=== PATIENT | male | born 1970 | race Hispanic/Latino ===

== ENCOUNTER 2019-05-01 03:15 | Inpatient (IN) ==
[2019-04-25 11:53] LABS: HEMATOCRIT 46.5 % (42.0-52.0); HEMOGLOBIN 15.1 g/dL (14.0-18.0); MCH 27.1 PG (27-31); MCHC 32.5 g/dL (33-37); MCV 83.3 FL (81-99); MPV 9.4 FL (7.4-10.4); RBC 5.58 XMIL (4.7-6.1); RDW 12.9 % (11.5-14.5); WBC 7.14 X1000 (4.8-10.8)
[2019-04-25 12:22] LABS: AGAP 11; BUN 15 mg/dL (8-22); CALCIUM 9.1 mg/dL (8.8-10.2); CHLORIDE 100 mmol/L (98-107); COSMO 276; CREATININE 0.7 mg/dL (0.7-1.2); ESTIMATED GFR > 60; GLUCOSE 98 mg/dL (70-104); POTASSIUM 4.2 mmol/L (3.5-5.1); SODIUM 138 mmol/L (136-145); TCO2 27 mmol/L (25-35)
--- NOTE | 2019-04-25 12:24 | EKG Report ---
Test Performed on : 04/25/2019 11:31:26 AM Test Reason : pat Blood Pressure : / mmHG Vent. Rate : 063 BPM Atrial Rate : 063 BPM P-R Int : 154 ms QRS Dur : 082 ms QT Int : 422 ms P-R-T Axes : 032 -02 015 degrees QTc Int : 431 ms Normal sinus rhythm. Normal ECG No previous ECGs available Confirmed by Geo Frias MD ([id number]) on 04/25/2019 11:09:20 PM
[2019-05-01] MEDS ORDERED: ENTEREG ONE (05:38)
[2019-05-01] MEDS ORDERED: PEPCID ONE (05:38)
[2019-05-01] MEDS ORDERED: LR 1,000 ML ONE (05:38)
[2019-05-01] MEDS ORDERED: REGLAN ONE (05:38)
[2019-05-01] MEDS ORDERED: MEFOXIN 2 GM/NS 2 GM/50 ML IVPB ONE (05:39)
[2019-05-01] MEDS ORDERED: DIPRIVAN 1% ONE (06:33)
[2019-05-01] MEDS ORDERED: ZOFRAN ONE (07:41)
[2019-05-01] MEDS ORDERED: ZEMURON ONE ×3 (07:41→08:27)
[2019-05-01] MEDS ORDERED: DECADRON ONE (07:41)
[2019-05-01] MEDS ORDERED: OFIRMEV 1000 MG/ISOTONIC SOLN 1,000 MG/100 ML BOTTLE ONE (07:41)
[2019-05-01] MEDS ORDERED: XYLOCAINE-MPF 2% ONE (07:41)
[2019-05-01] MEDS ORDERED: TORADOL ONE (07:41)
[2019-05-01 07:46] LABS: URINE SOURCE CATH
[2019-05-01 07:49] LABS: BILIRUBIN URINE NEGATIVE (NEGATIVE); BLOOD URINE NEGATIVE (NEGATIVE); COLOR STRAW; GLUCOSE URINE NEGATIVE (NEGATIVE); KETONE URINE NEGATIVE (NEGATIVE); LEUKOCYTES URINE NEGATIVE (NEGATIVE); NITRITE URINE NEGATIVE (NEGATIVE); PROTEIN URINE NEGATIVE (NEGATIVE); SP GRAVITY URINE 1.003; TURBIDITY URINE CLEAR (CLEAR); UROBILINOGEN URINE NORMAL (NORMAL)
[2019-05-01 07:50] LABS: UR EPITHELIAL CELLS <10 /HPF (<10); URINE BACTERIA NEGATIVE /HPF; URINE RBC <10 /HPF (<10); URINE WBC <10 /HPF (<10)
[2019-05-01] MEDS ORDERED: EPINEPHRINE ONE (08:27)
[2019-05-01] MEDS ORDERED: ROBINUL ONE (08:51)
[2019-05-01] MEDS ORDERED: NEOSTIGMINE ONE (08:52)
[2019-05-01] MEDS ORDERED: DILAUDID ONE (09:03)
[2019-05-01] MEDS ORDERED: D5 1/2 NS + KCL 20 MEQ 1,000 ML ONE (09:24)
--- NOTE | 2019-05-01 09:33 | OPERATIVE NOTE ---
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 PROCEDURES PERFORMED: 1. Open low anterior resection with stapled end-to-end anastomosis with a 31 mm anastomosis. 2. Takedown and repair of colovesicular fistula. SURGEON: Vega Melgoza M.D. [employer] WORKER: Dr. French. Dr. French assisted with the entirety of the case. His presence was crucial to completion of the case. He helped with retraction, identification of structures, completion of the anastomosis. ANESTHESIA: General endotracheal. INTRAOPERATIVE FINDINGS: Small area of inflammation that was stuck to the anterior wall near the bladder. COMPLICATIONS: None at the time of this dictation. ESTIMATED BLOOD LOSS: 100 mL. SPECIMENS REMOVED: Sigmoid colon. BRIEF HISTORY: A 48-year-old male presenting with classic symptoms of a colovesicular fistula. He wanted this repaired. The risks, benefits, and alternatives were discussed. All questions were answered. DESCRIPTION OF PROCEDURE: After informed consent was obtained, the patient was brought to the operative theater, transferred to the operative table, placed in the supine position. General endotracheal anesthesia was then performed without complication. A formal time-out was then performed, confirming the patient and procedure. All were in agreement. At that time, attention was given to the abdomen. It should be noted that Anesthesia did perform a transabdominal plain block prior to starting the procedure. We prepped and draped the abdomen in sterile fashion. After the time-out, we made a standard midline incision around the umbilicus, carried all way down to the fascia, entered into the abdomen. Upon entering the abdomen, we found the area that was intimately attached to the anterior wall, the abdominal wall, and the bladder. We started by mobilizing the white line of Toldt to mobilize the sigmoid colon. Once we mobilized it down, we took down the colovesicular fistula. It was very intimately attached. It seemed to be in the superior side of the bladder, but it was taken down to free up the colon. We then elected to find an area in the sigmoid colon proximally that was good for coming across with the stapler. We mobilized this, made a window in the mesentery, fired our stapler across it. We then used the LigaSure to come down on the mesentery all the way down to the rectum. We went past the peritoneal reflection, into the pelvis, down to the rectum, used a TA stapler to come across the rectum. We then fashioned our anastomosis using an EEA stapler. We elected to use a 31 stapler given the size. We used a pursestring device. There was good perfusion noted to both ends. We were able to bring the EEA stapler in from a transrectal approach, fired the stapler, tested it under water, it was air tight under water, two intact donuts. We irrigated out the abdomen until the suctioned fluid was clear. We then closed the fascia with a running loop PDS started at either end, and then stapled the skin. The patient tolerated the procedure well, was transferred back to the recovery room. We will keep his Robles catheter in place given the fact that he had a bladder repair. cc: Vega Melgoza MD
[2019-05-01] MEDS ORDERED: ZOFRAN IV PRN (10:35)
[2019-05-01] MEDS: MEFOXIN 2 GM/D5W 2 GM/50 ML IVPB IV SCH ×2 (14:30→21:00)
[2019-05-01] MEDS: OFIRMEV 1000 MG/ISOTONIC SOLN 1,000 MG/100 ML BOTTLE IV SCH ×2 (14:56→20:34)
[2019-05-01] MEDS: D5 1/2 NS + KCL 20 MEQ 1,000 ML IV SCH (14:57)
[2019-05-01] MEDS: HEPARIN SUBQ SCH (20:39)
[2019-05-01] MEDS ORDERED: PERIDEX MT ONE (21:07)
[2019-05-02] MEDS: OFIRMEV 1000 MG/ISOTONIC SOLN 1,000 MG/100 ML BOTTLE IV SCH (02:52)
[2019-05-02] MEDS: PERIDEX MT SCH ×3 (02:52→21:18)
[2019-05-02] MEDS: ULTRAM PO PRN ×4 (03:02→23:58)
[2019-05-02] MEDS: HEPARIN SUBQ SCH ×3 (05:36→21:18)
--- NOTE | 2019-05-02 07:34 | GENERAL SURGERY PROGRESS NOTE ---
DATE: 05/02/2019 SUBJECTIVE: Patient seems to be doing well. He has got a little bit of nausea but otherwise is doing okay. His pain seems to be adequately controlled. OBJECTIVE: Vital Signs: Patient is currently afebrile. His vital signs stable. General: No acute distress. Cardiovascular: Regular rate and rhythm. Lungs: Grossly clear. Abdomen: Soft, appropriately tender. No peritoneal signs. ASSESSMENT AND PLAN: A 48-year-old gentleman postoperative day #1 from open is low anterior resection with takedown of colovesicular fistula: 1. Colon resection. At this time continue routine postoperative care. He is on Entereg. We have got him on a clear liquid diet. We will await return of bowel function. 2. Colovesicular fistula. At this time, he keeps his Robles catheter for at least a week if not longer given the repair to the bladder. We will not remove the Robles catheter and normal timing. cc: Vega Melgoza MD
[2019-05-02] MEDS: D5 1/2 NS + KCL 20 MEQ 1,000 ML IV SCH (10:27)
[2019-05-02] MEDS: ENTEREG PO SCH ×2 (10:28→21:18)
--- NOTE | 2019-05-03 05:42 | GENERAL SURGERY PROGRESS NOTE ---
DATE: 05/03/2019 SUBJECTIVE: Patient seems to be doing okay. He says he has passed a little bit of gas. He tolerated a regular diet. OBJECTIVE: Vital Signs: Patient is currently afebrile. His vital signs are stable. General: No acute distress. Cardiovascular: Regular rate and rhythm. Lungs: Grossly clear. Abdomen: Soft, appropriately tender. Incision is healing well. Bowel sounds auscultated. ASSESSMENT AND PLAN: A 48-year-old gentleman, currently postoperative day #2 from open low anterior resection with takedown of colovesicular fistula. 1. Open colon resection. At this time, he seems to be doing well. We will continue enhanced recovery after surgery protocol. We will continue to monitor. 2. Colovesicular fistula. At this time, he keeps his Robles catheter. cc: Vega Melgoza MD
[2019-05-03] MEDS: HEPARIN SUBQ SCH ×3 (05:47→21:35)
[2019-05-03] MEDS: PERIDEX MT SCH ×2 (09:08→21:34)
[2019-05-03] MEDS: ENTEREG PO SCH ×2 (09:08→21:35)
[2019-05-03] MEDS: ULTRAM PO PRN ×3 (09:08→21:34)
[2019-05-03] MEDS: D5 1/2 NS + KCL 20 MEQ 1,000 ML IV SCH (12:13)
[2019-05-03] MEDS: TYLENOL PO PRN ×2 (13:58→23:42)
[2019-05-04] MEDS: ULTRAM PO PRN ×3 (05:36→21:42)
[2019-05-04] MEDS: HEPARIN SUBQ SCH ×3 (05:37→21:42)
--- NOTE | 2019-05-04 06:31 | GENERAL SURGERY PROGRESS NOTE ---
DATE: 05/04/2019 SUBJECTIVE: Patient seems to be doing well. He is passing some gas, and he still has a little bit of an issue with pain control. OBJECTIVE: Vital Signs: Patient is currently afebrile. His vital signs are stable. General: No acute distress. Cardiovascular: Regular rate and rhythm. Lungs: Grossly clear. Abdomen: Soft and appropriately tender. Incision is healing well. Bowel sounds auscultated. ASSESSMENT/PLAN: A 48-year-old gentleman currently postoperative day #3 from open low anterior resection with takedown of colovesicular fistula. 1. Open colon resection. At this time, continue current treatment. Hopefully, we can get him discharged in the near future. 2. Colovesicular fistula. At this time, continue Robles catheter. cc: Vega Melgoza MD
[2019-05-04] MEDS: PERIDEX MT SCH ×2 (08:44→21:43)
[2019-05-04] MEDS: ENTEREG PO SCH ×2 (08:44→21:42)
[2019-05-04] MEDS: D5 1/2 NS + KCL 20 MEQ 1,000 ML IV SCH (13:55)
[2019-05-05] MEDS: ULTRAM PO PRN ×2 (05:57→15:14)
[2019-05-05] MEDS: HEPARIN SUBQ SCH (05:58)
[2019-05-05] MEDS: ENTEREG PO SCH (08:21)
[2019-05-05] MEDS: PERIDEX MT SCH (08:21)
--- NOTE | 2019-05-05 08:31 | GENERAL SURGERY PROGRESS NOTE ---
DATE: 05/05/2019 SUBJECTIVE: Patient doing well. He is tolerating diet and having bowel movements. OBJECTIVE: Vital Signs: Patient is currently afebrile. His vital signs stable. General: No acute distress. Cardiovascular: Regular rate and rhythm. Lungs: Grossly clear. Abdomen: Soft, appropriately tender. : Robles catheter without blood. ASSESSMENT AND PLAN: A 48-year-old gentleman currently postoperative day #4 from open low anterior resection with takedown of colovesicular fistula. 1. Open colon resection. At this time his pain is controlled. He is tolerating p.o. He is having bowel movements. He is doing fine. We will discharge him home. 2. Colovesicular fistula. At this time, he will go home with his Robles catheter. We will have him follow up with Dr. Smyth, who is the urologist who saw him initially, for evaluation removal of Robles catheter. cc: Vega Melgoza MD
[2019-05-05] MEDS ORDERED: DITROPAN PO ONE (14:36)
[2019-05-05 15:48] VITALS: BP 126/84
== END 2019-05-05 16:05 | disposition home or self-care (01) | DRG 655 ==
LOC: SURHOLD 03:15 → 4N 07:49
PROVIDERS: ADMIT Surgery; ATTEND Surgery